=== PATIENT | female | born 1995 | race Caucasian/White ===

== ENCOUNTER 2022-07-02 08:41 | Emergency (ER) | payer OTHER ==
[~2022-07-02] VITALS: Ht 154.9 cm; Wt 75.3 kg
--- NOTE | 2022-07-02 08:45 | NUR ---
Received pt came from [facility] yesterday cme by 2 ANTHONY UNDER COSTED c/o vomiting blood awake and alert
[2022-07-02] MEDS ORDERED: FAMOTIDINE/PF INJ 20 MG/2 ML VIAL IV ONE ×2 (09:00→09:05)
[2022-07-02] MEDS ORDERED: ONDANSETRON HCL/PF 4 MG/2 ML VIAL IVP ONE (09:00)
[2022-07-02] MEDS ORDERED: IV NS 0.9% 1,000 ML BAG IV ONE (09:00)
--- NOTE | 2022-07-02 09:00 | NUR ---
INSERTED ANGO CATHTER G 20 ON LT AC BLOOD DROW AND SENT TO LAB AT BED SIDE
[2022-07-02] MEDS ORDERED: ONDANSETRON HCL/PF 4 MG/2 ML VIAL ONE (09:05)
[2022-07-02 09:18] LABS: BASOPHILS # (AUTO) 0.1 K/uL (0.0-0.2); BASOPHILS % (AUTO) 0.8 % (0.0-2.0); EOSINOPHILS % (AUTO) 0.1 % (0.0-6.0); HEMATOCRIT 41 % (33-45); LYMPHOCYTES # (AUTO) 1.7 K/uL (0.8-4.8); LYMPHOCYTES % (AUTO) 12.7 % (20.0-44.0); MEAN CORPUSCULAR HGB CONC 34 g/dl (31.0-36.0); MEAN CORPUSCULAR VOLUME 89 fL (82-100); MONOCYTES # (AUTO) 0.9 K/uL (0.1-1.30); MONOCYTES % (AUTO) 7.2 % (2.0-12.0); NEUTROPHILS # (AUTO) 10.4 K/uL (1.8-8.9); NEUTROPHILS % (AUTO) 79.2 % (43.0-81.0); PLATELET COUNT (AUTO) 380 K/uL (150-450); RED BLOOD CELL COUNT(AUTO) 4.66 MIL/uL (4.0-5.2); WHITE BLOOD COUNT (AUTO) 13.1 K/uL (4.3-11.0)
--- NOTE | 2022-07-02 09:46 | NUR ---
UA SENT TO LAB
[2022-07-02 09:49] LABS: CALCIUM, SERUM 8.8 mg/dL (8.5-10.1); CARBON DIOXIDE 29 mmol/L (21-32); CHLORIDE 105 mmol/L (98-107); CREATININE 0.7 mg/dL (0.6-1.3); GLUCOSE 99 mg/dL (74-106); POTASSIUM 3.8 mmol/L (3.5-5.1); SODIUM SERUM 143 mmol/L (136-145); UREA NITROGEN, BLOOD 8 mg/dL (7-18)
[2022-07-02] MEDS ORDERED: IOHEXOL-300 100 ML VIAL IV ONE (09:53)
--- NOTE | 2022-07-02 10:00 | NUR ---
X-RAY DONE AT BED SIDE
[2022-07-02 10:01] LABS: BILIRUBIN,URINE NEGATIVE (NEGATIVE); COLOR,URINE RED (YELLOW); LEUKOCYTE ESTERASE ,URINE NEGATIVE (NEGATIVE); NITRITE, URINE NEGATIVE (NEGATIVE); PROTEIN,URINE 1+ mg/dl (NEGATIVE); UGLUCOSE NEGATIVE (NEGATIVE); UROBILINOGEN,URINE 0.2 EU/dL (0.2)
[2022-07-02] MEDS ORDERED: IOHEXOL 240MG/ML 0 ML IV ONE (10:05)
--- NOTE | 2022-07-02 10:12 | NUR ---
TO CT SCAN OF ABDOMIN
[2022-07-02 10:29] LABS: BILIRUBIN,DIRECT 0.1 mg/dL (0.0-0.2); BILIRUBIN,TOTAL 0.4 mg/dL (0.2-1.0)
[2022-07-02 10:30] LABS: ALANINE AMINOTRANSFERASE 30 U/L (12-78); ALBUMIN 4.3 g/dL (3.4-5.0); ALKALINE PHOSPHATASE 80 U/L (46-116); ASPARTATE AMINOTRANSFERASE 15 U/L (15-37); TOTAL PROTEIN, SERUM 8.2 g/dL (6.4-8.2)
--- NOTE | 2022-07-02 10:48 | NUR ---
Reasting at this time
--- NOTE | 2022-07-02 11:29 | NUR ---
Noctive no vomiting blood abdomin soft none tender
[2022-07-02 11:34] LABS: RBC,URINE 21-50 /HPF (0-2)
[2022-07-02 11:35] LABS: BACTERIA,URINE Moderate /HPF (None Seen); SQUAMOUS EPITHELIAL CELL,UR Moderate /HPF (None Seen)
[2022-07-02] MEDS ORDERED: CEPH500C2 PO (11:49)
[2022-07-02] MEDS ORDERED: FAMO-131 PO (11:49)
[2022-07-02 11:55] VITALS: BP 110/62
--- NOTE | 2022-07-02 11:55 | NUR ---
IV removed. Catheter intact and site benign. Pressure and 4x4 applied to site. No bleeding noted.Patient discharged to home in stable condition. Written and verbal after care instructions given. Patient verbalizes understanding of instruction.
[2022-07-02] MEDS ORDERED: CEPHALEXIN MONOHYDRATE 500 MG CAPSULE PO ONE (12:00)
[2022-07-02 13:03] LABS: LIPASE 527 U/L (73-393)
== END 2022-07-02 11:55 | disposition home or self-care (01) ==
LOC: ER 08:41
DX: K92.0 Hematemesis (principal); R07.89 Other chest pain; R10.10 Upper abdominal pain, unspecified; V49.49XA Driver injured in collision with other motor vehicles in traffic accident, initial encounter; Y93.89 Activity, other specified; Y92.413 State road as the place of occurrence of the external cause; Y99.8 Other external cause status
CPT/HCPCS: 99285; 71260; 96374; 71045; 96361; 96375; 93005; 74177; 85025; 80048; 87086; 83690; 80076; 84703; 81001; 36415; 84484; 85730; J3490; J2405; J7030; Q9967; Q9966